=== PATIENT | female | born 1980 | race Caucasian/White ===

== ENCOUNTER → 2020-03-05 11:02 | Outpatient (CLI) | payer BC, SELFPAY ==
--- NOTE | ~2020-03-05 | MM_ITS ---
EXAMINATION: MM screening [facility] BI w margie HISTORY: Screening mammogram TECHNIQUE: Craniocaudal and mediolateral oblique 3-D tomosynthesis images were obtained and synthetic 2-D images were generated. CAD analysis was submitted and interpreted. COMPARISON: 12/02/2018 BREAST PARENCHYMAL COMPOSITION: There are scattered areas of fibroglandular density. FINDINGS: There is no evidence of suspicious mass, calcification, or architectural distortion to sugg est malignancy in either breast. There has been no suspicious interval change. IMPRESSION: 1. No mammographic evidence of malignancy. 2. Recommend routine screening mammography in one year. BI-RADS Category 1: Negative Reviewed, dictated and finalized at location A.
== END ==
PROVIDERS: Visit Provider Obstetrics & Gynecology
DX: Z12.31 Encounter for screening mammogram for malignant neoplasm of breast (principal)
CPT/HCPCS: 77063; 77067

== ENCOUNTER → 2021-03-07 15:17 | Outpatient (CLI) | payer OTHER, SELFPAY ==
--- NOTE | ~2021-03-07 | MM_ITS ---
EXAMINATION: MM screening [facility] BI w margie HISTORY: Screening TECHNIQUE: Craniocaudal and mediolateral oblique 3-D tomosynthesis images were obtained and synthetic 2-D images were generated. CAD analysis was submitted and interpreted. COMPARISON: No prior mammogram is available for comparison at this institution. Comparison to multipl e prior studies sequentially, with oldest reviewed study dated 12/02/2018. BREAST PARENCHYMAL COMPOSITION: There are scattered areas of fibroglandular density. FINDINGS: There is no evidence of suspicious mass, calcification, or architectural distortion to sugg est malignancy in either breast. There has been no suspicious interval change. IMPRESSION: 1. No mammographic evidence of malignancy. 2. Recommend routine screening mammography in one year. BI-RADS Category 1: Negative Reviewed, dictated and finalized at location A.
== END ==
PROVIDERS: PCP Physician Assistant; Visit Provider Obstetrics & Gynecology
DX: Z12.31 Encounter for screening mammogram for malignant neoplasm of breast (principal)
CPT/HCPCS: 77063; 77067

== ENCOUNTER → 2021-08-30 11:19 | Outpatient (CLI) | payer OTHER, SELFPAY ==
--- NOTE | ~2021-08-30 | XR_ITS ---
EXAMINATION: XR chest 2V 08/30/2021 11:28 INDICATION: Shortness of breath PROCEDURE: 2 view chest COMPARISON: No prior studies for comparison. FINDINGS: The lungs are clear. The cardiomediastinal silhouette is within normal limits. There are no pleural effusions. There is no pneumothorax suspected. IMPRESSION: 1: NO ACUTE CARDIOPULMONARY DISEASE. Reviewed, dictated and finalized at location A. MECHANICS INSTRUCTOR
== END ==
PROVIDERS: PCP Physician Assistant; Visit Provider Physician Assistant
DX: R06.89 Other abnormalities of breathing (principal)
CPT/HCPCS: 71046

== ENCOUNTER → 2021-09-02 16:15 | Outpatient (REF) | payer OTHER, SELFPAY | LOC: ANHLAB 16:15 | PROVIDERS: PCP Physician Assistant; Visit Provider Nurse Practitioner | DX: L57.0 Actinic keratosis (principal) | CPT/HCPCS: 88305 ==

== ENCOUNTER → 2021-09-15 14:26 | Outpatient (CLI) | payer OTHER, SELFPAY ==
--- NOTE | ~2021-09-15 | MR_ITS ---
EXAMINATION: MR lumbar spine wo con DATE: 09/15/2021 15:22 INDICATION: Lumbar spondylosis TECHNIQUE: Magnetic resonance imaging (MRI) of the lumbar spine was performed without intravenous con trast. Sequences included sagittal T2-weighted FSE, sagittal T2-weighted FS FSE, sagittal T1-weighted FSE, and axial T2-weighted FSE. COMPARISON: 02/04/2016 FINDINGS: L5 spondylolysis with chronic bilateral pars interarticularis defects and no significant change in a 10 mm anterolisthesis L5 on S1. Also unchanged is 3 mm retrolisthesis L4 on L5. Annular fissure and s evere associated disc height loss at L5-S1 with fibrovascular degenerative endplate changes. Disc lori iccation, mild disc height loss and annular fissure at L4-L5. Chronic mild posterior vertebral body h eight loss at L5. Remaining vertebral body heights are normal. 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 Marrow signal is otherwise normal. The conus medullaris terminates at L1. There is n ormal signal in the caudal spinal cord. Paravertebral soft tissues are unremarkable. The following di sc levels are specifically discussed: T12-L1: The disc does not extend beyond the endplate margin. There is mild bilateral facet joint oste oarthritis. There is no neural foraminal stenosis. There is no central canal stenosis. L1-L2: Disc is minimally bulging. There is mild bilateral facet joint osteoarthritis. There is no leodan ral foraminal stenosis. There is no central canal stenosis. L2-L3: Disc is minimally bulging. There is mild bilateral facet joint osteoarthritis. There is minima l left neural foraminal stenosis. There is no central canal stenosis. L3-L4: Disc is mildly bulging. There is mild bilateral facet joint osteoarthritis. There is mild bila teral neural foraminal stenosis. There is mild central canal stenosis. L4-L5: Disc is bulging with annular fissure. There is mild right and mild to moderate left facet join t osteoarthritis. There is mild to moderate bilateral neural foraminal stenosis. There is mild centra l canal stenosis with mild to moderate narrowing of the left and right lateral recesses. L5-S1: Disc bulge with annular fissure. There is mild bilateral facet joint osteoarthritis. There is moderate to severe bilateral neural foraminal stenosis. There is mild central canal stenosis. IMPRESSION: 1. No significant change in chronic L5 spondylolysis with bilateral pars intra-articular is defects, 10 mm anterolisthesis on S1 and moderate to severe bilateral neural foraminal stenosis. 2. No significant change in mild spondylosis in the more cephalad lumbar spine. Reviewed, dictated and finalized at location A. D CARE GIVER IMPRESSION: 1. No significant change in chronic L5 spondylolysis with bilateral pars intra- articular is defects, 10 mm anterolisthesis on S1 and moderate to severe bilate ral neural foraminal stenosis. 2. No significant change in mild spondylosis in the more cephalad lumbar spine.
== END ==
PROVIDERS: PCP Physician Assistant; Visit Provider Physician Assistant
DX: M47.817 Spondylosis without myelopathy or radiculopathy, lumbosacral region (principal); M48.07 Spinal stenosis, lumbosacral region
CPT/HCPCS: 72148

== ENCOUNTER → 2022-07-24 14:46 | Outpatient (CLI) | payer BC, SELFPAY ==
--- NOTE | ~2022-07-24 | MM_ITS ---
EXAMINATION: MM screening [facility] BI w margie HISTORY: Screening TECHNIQUE: Craniocaudal and mediolateral oblique 3-D tomosynthesis images were obtained and synthetic 2-D images were generated. CAD analysis was submitted and interpreted. COMPARISON: Comparison to multiple prior studies sequentially, with oldest reviewed study dated 12/02. BREAST PARENCHYMAL COMPOSITION: There are scattered areas of fibroglandular density. FINDINGS: There is no evidence of suspicious mass, calcification, or architectural distortion to sugg est malignancy in either breast. There has been no suspicious interval change. IMPRESSION: 1. No mammographic evidence of malignancy. 2. Recommend routine screening mammography in one year. BI-RADS Category 1: Negative Reviewed, dictated and finalized at location A. COUNSELOR
== END ==
PROVIDERS: PCP Physician Assistant; Visit Provider Nurse Practitioner
DX: Z12.31 Encounter for screening mammogram for malignant neoplasm of breast (principal)
CPT/HCPCS: 77063; 77067

== ENCOUNTER 2024-03-23 15:22 | Outpatient (CLI) | payer BC, SELFPAY ==
--- NOTE | ~2024-03-23 | MM_ITS ---
EXAMINATION: MM screening [facility] BI w margie HISTORY: Screening mammogram TECHNIQUE: Craniocaudal and mediolateral oblique 3-D tomosynthesis images were obtained and synthetic 2-D images were generated. CAD analysis was submitted and interpreted. COMPARISON: 07/24/2022, 03/07/2021, 03/05/2020 BREAST PARENCHYMAL COMPOSITION:Not Dense. There are scattered areas of fibroglandular density. FINDINGS: No suspicious mass, calcification, or architectural distortion are identified in either robert ast to suggest malignancy. There has been no suspicious interval change. IMPRESSION: No mammographic evidence of malignancy. Recommend routine screening mammography in one year. BI-RADS Category 1: Negative Reviewed, dictated and finalized at location .
== END 2024-03-23 15:23 | disposition home or self-care (01) ==
PROVIDERS: PCP Physician Assistant; Visit Provider Physician Assistant
DX: Z12.31 Encounter for screening mammogram for malignant neoplasm of breast (principal)
CPT/HCPCS: 77063; 77067

== ENCOUNTER 2025-06-21 08:18 | Outpatient (CLI) | payer BC, SELFPAY ==
--- NOTE | ~2025-06-21 | MM_ITS ---
EXAMINATION: MM screening [facility] BI w margie HISTORY: Screening. TECHNIQUE: Craniocaudal and mediolateral oblique 3-D tomosynthesis images were obtained and synthetic 2-D images were generated. CAD analysis was submitted and interpreted. COMPARISON: 2023, 2022, and 2020. BREAST PARENCHYMAL COMPOSITION: Not Dense: There are scattered areas of fibroglandular FINDINGS: No suspicious masses are seen. There are no suspicious calcifications. No unexplained architectural distortion is seen. There are no skin or nipple abnormalities identified. There is no adenopathy seen on the images submitted. IMPRESSION: No mammographic evidence to suggest malignancy is seen. The patient may return to screening mammography as per ACR guidelines. BI-RADS 1 - Negative. Reviewed, dictated and finalized at location C. ET INSPECTOR
== END 2025-06-21 08:19 | disposition home or self-care (01) ==
LOC: ANHFOHIMG 08:22
PROVIDERS: PCP Physician Assistant; Visit Provider Physician Assistant
DX: Z12.31 Encounter for screening mammogram for malignant neoplasm of breast (principal)
CPT/HCPCS: 77063; 77067